=== PATIENT | male | born 1990 | race Caucasian/White ===

== ENCOUNTER 2020-06-20 15:36 | Outpatient (REF) | payer OTHER, SELFPAY ==
[2020-06-20 18:01] LABS: SARS COV2 PCR INHOUSE NEGATIVE (Negative)
== END 2020-06-20 15:37 | disposition home or self-care (01) ==
LOC: HO.LAB 15:36
PROVIDERS: Visit Provider Internal Medicine
DX: Z20.828 Contact with and (suspected) exposure to other viral communicable diseases (principal)
CPT/HCPCS: 87635

== ENCOUNTER 2020-06-23 13:56 | Outpatient (REF) | payer OTHER, SELFPAY ==
[2020-06-23 14:17] LABS: COVID-19 Test Negative (Negative)
== END 2020-06-23 13:57 | disposition home or self-care (01) ==
LOC: HO.LAB 13:56
PROVIDERS: Visit Provider Internal Medicine
DX: Z20.828 Contact with and (suspected) exposure to other viral communicable diseases (principal)
CPT/HCPCS: 87635

== ENCOUNTER 2021-05-12 12:32 | Outpatient (REF) | payer OTHER, SELFPAY ==
[2021-05-12 13:05] LABS: COVID-19 Test Negative (Negative); IDNOW Serial# 55D5AD1C
== END 2021-05-12 12:33 | disposition home or self-care (01) ==
LOC: HO.EMPCOV 12:32
PROVIDERS: Visit Provider Internal Medicine
DX: Z20.822 Contact with and (suspected) exposure to COVID-19 (principal)
CPT/HCPCS: 36415; 87635

== ENCOUNTER 2021-05-16 15:02 | Outpatient (REF) | payer OTHER, SELFPAY ==
[2021-05-16 15:57] LABS: Influenza A PCR NEGATIVE (Negative); Influenza B PCR NEGATIVE (Negative); Resp Syncy Virus RNA Qual PCR NEGATIVE (Negative); SARS COV2 PCR INHOUSE NEGATIVE (Negative)
== END 2021-05-16 15:03 | disposition home or self-care (01) ==
LOC: HO.EMPCOV 15:02
PROVIDERS: Visit Provider Internal Medicine
DX: Z20.822 Contact with and (suspected) exposure to COVID-19 (principal)
CPT/HCPCS: 0241U; 36415

== ENCOUNTER 2021-05-31 18:37 | Outpatient (REF) | payer OTHER, SELFPAY ==
[2021-05-31 19:09] LABS: Strep A Nucleic Acid Negative (Negative)
== END 2021-05-31 18:38 | disposition home or self-care (01) ==
LOC: HO.LAB 18:37
PROVIDERS: Visit Provider Internal Medicine
DX: J02.9 Acute pharyngitis, unspecified (principal); Z20.822 Contact with and (suspected) exposure to COVID-19
CPT/HCPCS: 36415; 87651; C9803

== ENCOUNTER 2021-06-02 15:20 | Emergency (ER) | payer OTHER, SELFPAY ==
--- NOTE | ~2021-06-02 | XR_ITS ---
EXAMINATION: XR CHEST CLINICAL INFORMATION: Cough and fever COMPARISON: None TECHNIQUE: 2 views of the chest were obtained. FINDINGS: No significant abnormality is noted involving the heart, lungs, mediastinum, bony thorax or soft tissues. XR/XR chest 2V IMPRESSION: Unremarkable examination.
[2021-06-02 15:48] VITALS: BP 135/78; PULSE 95; RESP 16; TEMP 37.9; O2SAT 96; BMI 29.7
--- NOTE | 2021-06-02 16:17 | ED_ITS ---
HPI - General Adult General Chief complaint: General Medical Stated complaint: covid symptoms Time Seen by Provider: 06/02/21 15:38 Source: patient Mode of arrival: ambulatory Limitations: no limitations History of Present Illness HPI narrative: Patient presents to the ED for fever, body aches, sore throat, and headache intermittently for the past 3 weeks. Patient states no chest pain or shortness of breath. Patient denies any rash, abdominal pain, diarrhea, hematuria, dysuria, flank pain, or any complaints, Related Data Previous Rx's Medication Instructions Recorded oxycodone 5 mg tablet 5 mg PO Q8H PRN 3 Days #10 tab 12/22/20 amoxicillin 875 mg-potassium 1 tab PO Q12H 10 Days #20 tab 06/02/21 clavulanate 125 mg tablet (Augmentin) doxycycline hyclate 100 mg capsule 100 mg PO BID 7 Days #14 cap 06/02/21 naproxen 500 mg tablet 500 mg PO BID PRN #20 tab 06/02/21 Allergies Allergy/AdvReac Type Severity Reaction Status Date / Time No Known Allergies Allergy Unverified 05/17/20 17:05 Review of Systems Review of Systems: Yes all other systems are reviewed and are negative Constitutional: Constitutional: Reports as per HPI, Reports no additional constitutional complaints, Reports body ache(s), Reports fever(s) and Reports headache(s) Eyes: Eyes: Reports as per HPI and Reports no additional eye complaints ENT: Reports system reviewed and no additional complaints, except as documented, Reports as per HPI, Reports headache(s) and Reports sore throat Cardiovascular: Cardiovascular: Reports as per HPI and Reports no additional cardiovascular complaints Respiratory: Respiratory: Reports as per HPI and Reports no additional respiratory complaints Gastrointestinal: Gastrointestinal: Reports as per HPI and Reports no additional gastrointestinal complaints Musculoskeletal: Musculoskeletal: Reports no additional musculoskeletal complaints and Reports as per HPI Neurologic: Reports system reviewed and no additional complaints, except as documented, Reports as per HPI and Reports headache(s) Psychiatric: Psychiatric: Reports no additional psychiatric complaints and Reports as per HPI PMF Social History Social History Alcohol intake: current Alcohol intake frequency: holidays/special occasions only Patient Tobacco Use Status: Current everyday Tobacco user Smoked in Last 30 Days: Yes Use of substances other than those prescribed or required for medical reasons: No Advance Directives: No Advance Directives Information Provided: No Physical Exam Vital Signs: Vital Signs: Last Vital Signs Temp 100.7 F H 06/02/21 17:49 Pulse 86 06/02/21 17:49 Resp 20 06/02/21 17:49 BP 152/75 H 06/02/21 17:49 Pulse Ox 98 06/02/21 17:49 Body Mass Index 29.7 Const: General: cooperative, healthy appearing, comfortable, no acute distress, well developed, alert, awake and Physically active Orientation/consciousness: patient oriented x3 HENMT: Head: Yes normal to inspection, Yes No palpable skull fracture present, Yes normocephalic and Yes atraumatic Ears: hearing grossly normal bilaterally, external ears normal, TM's normal bilaterally, EAC's normal, mastoids normal and no periauricular adenopathy Throat: Yes posterior oropharynx normal, Yes tonsils normal and Yes uvula midline Eyes: General: appearance normal, both eyes and all related structures Neck: Neck: Yes normal visual inspection, Yes full ROM, Yes no lymphadenopathy, Yes no meningeal signs, Yes trachea midline, Yes supple and No tender Chest: Chest palpation & inspection: normal inspection of the chest and normal palpation of entire chest wall Resp: Effort & Inspection: normal respiratory effort and able to speak in complete sentences Auscultation: clear to auscultation bilaterally Cardio: Jugular venous distension: no JVD Heart sounds: S1 normal heart sound present and S2 normal heart sound present GI: Inspection: Yes normal to inspection and No abdominal wall ecchymosis Palpation (GI): Soft to palpation, not firm, nontender, no guarding and not rigid : General: No CVA tenderness and Yes no CVA tenderness Back/Spine/Pelvis: Back: no CVA tenderness, No CVA tenderness and No back tenderness Skin: General skin exam: no rashes or lesions noted and elasticity normal Neuro: General: patient oriented x3, gait normal, no meningeal signs and CN's II-XI intact bilaterally Cranial nerves: Yes CN's II-XII intact bilaterally Extrem: General: Yes normal to inspection and Yes full ROM Psych: Appearance: grossly normal, well kempt and not disheveled Course Course Course Narrative: Patient is swabbed for COVID, strep, mono, and chest x-ray. Reevaluation(s) Reevaluation #1: COVID test, strep test, mono, and chest x-ray came back normal. Rest a respiratory panel still pending. Patient was ask has he been into the kitchen, seen a rash, being bit by tick and he states he is unaware. Will send Lyme test before discharge. Patient will be treated with doxycycline empirically. Tonsils are very red and strep test negative was still given the antibiotics. Patient informed to follow-up primary care provider Time: 19:07 Medical Decision Making MDM Narrative Medical decision making narrative: Pharyngitis. Lab Data Labs: Lab Results 06/02/21 06/02/21 06/02/21 Range/Units 16:30 16:35 16:35 Coronavirus (PCR) NEGATIVE (Negative) Monoscreen Negative (Negative) Influenza Type A (PCR) NEGATIVE (Negative) Influenza Type B (PCR) NEGATIVE (Negative) RSV RNA Qual (PCR) NEGATIVE (Negative) S. pyogenes GrpA JESSY Negative (Negative) Discharge Plan Discharge Clinical Impression: Pharyngitis Patient Disposition: Home, Self-Care Instructions: Pharyngitis (ED) Additional Instructions: Your COVID test, influenza, RSV, monospot and rapid strep test came back negative. Chest x-ray came back negative for pneumonia. Your Lyme test is pending you will be discharged with doxycycline as a precaution for possible Lyme infection. Although a strep test came back negative will be treated with Augmentin. Return to the ED for worsening symptoms, chest pain, abdominal pain, dysuria, hemautira, flank pain, inabitilty to tolerate solid food/liquids shortness of breath, intractable fever, weakness, chills, or any other concerning symptoms. Please follow-up with PCP Prescriptions: New doxycycline hyclate 100 mg capsule 100 mg PO BID 7 Days Qty: 14 RF: 0 amoxicillin-pot clavulanate [Augmentin] 875-125 mg tablet 1 tab PO Q12H 10 Days Qty: 20 RF: 0 naproxen 500 mg tablet 500 mg PO BID PRN (Reason: pain) Qty: 20 RF: 0 No Action oxycodone 5 mg tablet 5 mg PO Q8H PRN (Reason: pain) 3 Days Qty: 10 RF: 0 Stand Alone Forms: Work/School Release Interventions: ED Discharge Assessment Last Done: 06/02/21 19:32 Discharge Date/Time: 06/02/21 19:34 Print Language: Mongolian
[2021-06-02 16:53] LABS: IDNOW Serial# 9DD0AD1C; Strep A Nucleic Acid Negative (Negative)
[2021-06-02 17:21] LABS: Adenovirus PCR Not Detected (Not Detect.); Bordetella parapertussis PCR Not Detected (Not Detect.); Bordetella pertussis PCR Not Detected (Not Detect.); Chlamydia pneumoniae PCR Not Detected (Not Detect.); Coronavirus 229E PCR Not Detected (Not Detect.); Coronavirus HKU1 PCR Not Detected (Not Detect.); Coronavirus NL63 PCR Not Detected (Not Detect.); Coronavirus OC43 PCR Not Detected (Not Detect.); Human metapneumovirus PCR Not Detected (Not Detect.); Influenza A PCR Not Detected (Not Detect.); Influenza B PCR Not Detected (Not Detect.); Mycoplasma pneumoniae PCR Not Detected (Not Detect.); Parainfluenza 1 PCR Not Detected (Not Detect.); Parainfluenza 2 PCR Not Detected (Not Detect.); Parainfluenza 3 PCR Not Detected (Not Detect.); Parainfluenza 4 PCR Not Detected (Not Detect.); RSV PCR Not Detected (Not Detect.); Rhino/Enterovirus PCR Not Detected (Not Detect.); SARS-CoV-2 PCR Not Detected (Not Detect.)
[2021-06-02 17:26] LABS: Influenza A PCR NEGATIVE (Negative); Influenza B PCR NEGATIVE (Negative); Resp Syncy Virus RNA Qual PCR NEGATIVE (Negative); SARS COV2 PCR INHOUSE NEGATIVE (Negative)
[2021-06-02 17:32] LABS: Monotest Negative (Negative)
[2021-06-02 17:49] VITALS: BP 152/75; PULSE 86; RESP 20; TEMP 38.2; O2SAT 98
[2021-06-02] MEDS: Acetaminophen 325 MG TABLET 650 MG PO (18:47)
[2021-06-04 16:56] LABS: Lyme Abs Screen <0.90 index
== END 2021-06-02 19:34 | disposition home or self-care (01) ==
PROVIDERS: Physician Assistant; Emergency Provider Emergency Medicine Emergency Medical Services
DX: J02.9 Acute pharyngitis, unspecified (principal); F17.200 Nicotine dependence, unspecified, uncomplicated; Z20.822 Contact with and (suspected) exposure to COVID-19; Z79.899 Other long term (current) drug therapy; Z71.6 Tobacco abuse counseling
CPT/HCPCS: 0241U; 36415; 71046; 86308; 86617; 86618; 87633; 87651; 99283; 99284

== ENCOUNTER 2021-07-03 14:51 | Outpatient (REF) | payer OTHER, SELFPAY ==
[2021-07-03 15:13] LABS: COVID-19 Test Negative (Negative)
== END 2021-07-03 14:52 | disposition home or self-care (01) ==
LOC: HO.LAB 14:51
PROVIDERS: Visit Provider Internal Medicine
DX: Z20.822 Contact with and (suspected) exposure to COVID-19 (principal)
CPT/HCPCS: 36415; 87635; C9803

== ENCOUNTER 2021-07-26 17:38 | Outpatient (REF) | payer OTHER, SELFPAY ==
[2021-07-26 18:09] LABS: COVID-19 Test Negative (Negative)
== END 2021-07-26 17:39 | disposition home or self-care (01) ==
LOC: HO.LAB 17:38
PROVIDERS: Visit Provider Internal Medicine
DX: Z20.822 Contact with and (suspected) exposure to COVID-19 (principal)
CPT/HCPCS: 36415; 87635

== ENCOUNTER 2021-08-07 22:27 | Emergency (ER) | payer OTHER, SELFPAY ==
[2021-08-07 22:33] VITALS: BP 128/72; PULSE 84; RESP 16; TEMP 37; O2SAT 97; BMI 32.2
[2021-08-07] MEDS: Lidocaine HCl 2 % MPF 5 ML VIAL SUBCUT (22:57)
--- NOTE | 2021-08-07 23:00 | ED.SKABFB ---
HPI - Skin/Abscess/Foreign Bdy General Chief complaint: Skin/Abscess/Foreign Body Stated complaint: abscess Time Seen by Provider: 08/07/21 22:29 Source: patient Mode of arrival: ambulatory Limitations: no limitations History of Present Illness HPI narrative: 31-year-old male here with complaints of bump to the left lower abdomen for several days. There is some tenderness to the site, redness and warmth. No fevers or chills. Related Data Previous Rx's Medication Instructions Recorded oxycodone 5 mg tablet 5 mg PO Q8H PRN 3 Days #10 tab 12/22/20 amoxicillin 875 mg-potassium 1 tab PO Q12H 10 Days #20 tab 06/02/21 clavulanate 125 mg tablet (Augmentin) doxycycline hyclate 100 mg capsule 100 mg PO BID 7 Days #14 cap 06/02/21 naproxen 500 mg tablet 500 mg PO BID PRN #20 tab 06/02/21 doxycycline monohydrate 100 mg 100 mg PO BID #14 tab 08/07/21 tablet ibuprofen 600 mg tablet 600 mg PO Q8H PRN #20 tab 08/07/21 Allergies Allergy/AdvReac Type Severity Reaction Status Date / Time No Known Allergies Allergy Unverified 05/17/20 17:05 Review of Systems Review of Systems: Yes all other systems are reviewed and are negative Constitutional: Constitutional: Reports no additional constitutional complaints, Denies body ache(s), Denies chills, Denies fever(s), Denies headache(s) and Denies weakness Eyes: Eyes: Reports no additional eye complaints and Denies change in vision ENT: Reports system reviewed and no additional complaints, except as documented, Denies dizziness, Denies headache(s), Denies nasal congestion, Denies nasal discharge and Denies neck pain Cardiovascular: Cardiovascular: Reports no additional cardiovascular complaints, Denies chest pain, Denies leg edema and Denies dyspnea Respiratory: Respiratory: Reports no additional respiratory complaints, Denies cough and Denies dyspnea Gastrointestinal: Gastrointestinal: Reports no additional gastrointestinal complaints, Denies abdominal pain, Denies diarrhea, Denies nausea and Denies vomiting Genitourinary: Genitourinary: Denies urinary incontinence Musculoskeletal: Musculoskeletal: Reports no additional musculoskeletal complaints, Denies back pain, Denies arthralgias, Denies joint swelling, Denies neck pain, Denies numbness and Denies tingling Integumentary/Breasts: Skin/Breast: Reports system reviewed and no additional complaints, except as docu, Reports swelling, Reports erythema and Denies rash Neurologic: Reports system reviewed and no additional complaints, except as documented, Denies dizziness, Denies headache(s), Denies numbness, Denies tingling and Denies weakness PMF Past Medical History Attestation statement: The following information was validated with the patient. Source: old records reviewed and nursing notes reviewed Social History Social History Alcohol intake: current Alcohol intake frequency: holidays/special occasions only Patient Tobacco Use Status: Current everyday Tobacco user Advance Directives: No Advance Directives Information Provided: No Physical Exam Vital Signs: Vital Signs: Last Vital Signs Temp 98.6 F 08/07/21 22:33 Pulse 84 08/07/21 22:33 Resp 16 08/07/21 22:33 BP 128/72 08/07/21 22:33 Pulse Ox 97 08/07/21 22:33 BMI result Body Mass Index 32.2 Const: General: cooperative, healthy appearing, comfortable and no acute distress Orientation/consciousness: patient oriented x3 Limitations: no limitations HENMT: Head: Yes normal to inspection Ears: hearing grossly normal bilaterally General nose exam: Normal external nose present Face and sinus: Yes normal facial exam Mouth: Normal oral and palatal mucosa present Throat: Yes posterior oropharynx normal Eyes: General: appearance normal, both eyes and all related structures Neck: Neck: Yes normal visual inspection Chest: Chest palpation & inspection: normal inspection of the chest Resp: Effort & Inspection: normal respiratory effort Cardio: Peripheral pulses: Peripheral pulses 2+ throughout GI: Inspection: Yes normal to inspection Palpation (GI): nontender Abdomen image: 1. Abscess medium size with fluctuance, pointing, tenderness. There is no surrounding erythema or warmth. The abdomen is soft and nontender Back/Spine/Pelvis: Thoracic/Lumbar Spine: thoracic and lumbar spine normal to inspection Skin: General skin exam: no rashes or lesions noted Neuro: General: patient oriented x3 and moves all extremities Extrem: General: Yes normal to inspection Course Course Course Narrative: abscess the left lower quadrant. See procedure note. No evidence of abdominal wall cellulitis. No fevers or chills or systemic signs of infection. Will place patient on course of antibiotics. Reviewed worrisome signs and symptoms of when to return to the emergency department. Comfortable discharge home. Procedures Abscess I/D Site: abdomen Side (if applicable): left Local Anesthetic: lidocaine 2% Amount of anesthesia used (mL): 3 Technique: incised with blade Sent for culture/gram staining?: No Irrigation: No Packing used?: iodoform Discharge Plan Discharge Clinical Impression: Abscess of skin or subcutaneous tissue Patient Disposition: Home, Self-Care Instructions: Abscess (ED) Additional Instructions: packing removal in 2 days Prescriptions: New doxycycline monohydrate 100 mg tablet 100 mg PO BID Qty: 14 RF: 0 ibuprofen 600 mg tablet 600 mg PO Q8H PRN (Reason: pain) Qty: 20 RF: 0 No Action oxycodone 5 mg tablet 5 mg PO Q8H PRN (Reason: pain) 3 Days Qty: 10 RF: 0 doxycycline hyclate 100 mg capsule 100 mg PO BID 7 Days Qty: 14 RF: 0 amoxicillin-pot clavulanate [Augmentin] 875-125 mg tablet 1 tab PO Q12H 10 Days Qty: 20 RF: 0 naproxen 500 mg tablet 500 mg PO BID PRN (Reason: pain) Qty: 20 RF: 0 Referrals: Physician,None [Primary Care Provider] - 2 days
== END 2021-08-07 23:04 | disposition home or self-care (01) ==
PROVIDERS: Emergency Provider Internal Medicine
DX: L02.211 Cutaneous abscess of abdominal wall (principal)
CPT/HCPCS: 10060; 99283; 99284

== ENCOUNTER 2021-08-29 14:13 | Outpatient (REF) | payer OTHER, SELFPAY ==
[2021-08-29 14:55] LABS: COVID-19 Test Positive (Negative)
== END 2021-08-29 14:14 | disposition home or self-care (01) ==
LOC: HO.LAB 14:13
PROVIDERS: Visit Provider Internal Medicine
DX: Z20.822 Contact with and (suspected) exposure to COVID-19 (principal)
CPT/HCPCS: 36415; 87635

== ENCOUNTER 2022-04-06 21:12 | Emergency (ER) | payer OTHER, SELFPAY ==
[2022-04-06 21:17] VITALS: BP 126/82; PULSE 90; RESP 18; TEMP 36.8; O2SAT 96; BMI 33.4
== END 2022-04-07 01:02 | disposition left against medical advice (07) ==
LOC: HO.ED 04-07 00:36
PROVIDERS: Emergency Provider Emergency Medicine
DX: L02.211 Cutaneous abscess of abdominal wall (principal); F17.200 Nicotine dependence, unspecified, uncomplicated
CPT/HCPCS: 99281

== ENCOUNTER 2024-08-05 22:57 | Emergency (ER) | payer OTHER, SELFPAY ==
--- NOTE | ~2024-08-05 | XR_ITS ---
EXAMINATION: XR ANKLE, LEFT CLINICAL INFORMATION: injury pain COMPARISON: None. TECHNIQUE: AP, lateral, and mortise views of the left ankle. FINDINGS: The bone mineralization is normal. There are old healed fractures of the distal tibia and fibula. The ankle joint space is maintained. There is no acute fracture. There appears to be mild soft tissue swelling about the ankle. XR/XR ankle LT min 3V IMPRESSION: 1. No acute fracture. 2. Old healed fractures of the distal tibia and fibula. 3. Mild soft tissue swelling. Electronically signed by: Jake Vides MD 08/06/2024 02:08 AM [facility]
[2024-08-05 23:04] VITALS: BP 128/80; PULSE 93; RESP 16; TEMP 37.1; O2SAT 97; BMI 35.6
--- NOTE | 2024-08-06 00:01 | ED.GENADULT ---
HPI - General Adult General Chief complaint: Extremity Injury, Lower Stated complaint: L ankle injury Time Seen by Provider: 08/05/24 23:42 Source: patient, RN notes reviewed and old records reviewed Mode of arrival: ambulatory Limitations: no limitations History of Present Illness ED Provider: Teagan EDGAR narrative: 34-year-old male presents for evaluation of left ankle pain. Patient reports he was chasing a dog a few hours ago. He reports that his left ankle rolled She heard a pop and has had pain ever since. He has been able to ambulate Denies any other injuries Related Data Previous Rx's ?Medication ?Instructions ?Recorded oxycodone 5 mg tablet 5 mg PO Q8H PRN pain 3 days #10 12/22/20 tabs amoxicillin 875 mg-potassium 1 tab PO Q12H 10 days #20 tabs 06/02/21 clavulanate 125 mg tablet (Augmentin) doxycycline hyclate 100 mg capsule 100 mg PO BID 7 days #14 caps 06/02/21 naproxen 500 mg tablet 500 mg PO BID PRN pain #20 tabs 06/02/21 doxycycline monohydrate 100 mg 100 mg PO BID #14 tabs 08/07/21 tablet ibuprofen 600 mg tablet 600 mg PO Q8H PRN pain #20 tabs 08/07/21 Allergies Allergy/AdvReac Type Severity Reaction Status Date / Time No Known Allergies Allergy Verified 08/05/24 23:07 Review of Systems Musculoskeletal: Musculoskeletal: Reports arthralgias, Reports joint swelling and Reports limited range of motion PMFSH Social History Social History Alcohol intake: current Alcohol intake frequency: a few times a month Patient Tobacco Use Status: Current everyday Tobacco user Smoked in Last 30 Days: No Use of substances other than those prescribed or required for medical reasons: No Advance Directives: No Advance Directives Information Provided: Yes Do you have a plan to hurt others: No Plan Physical Exam ED Vital Signs: Vital Signs - 24 hr 08/05/24 23:04 Temperature 98.8 F Pulse Rate 93 Respiratory Rate 16 Blood Pressure 128/80 Pulse Oximetry 97 Oxygen Delivery Method Room Air BMI result Body Mass Index 35.6 Const General: healthy appearing, comfortable, no acute distress, alert and awake Nutritional Appearance: well nourished Orientation/consciousness: patient oriented x3 HENMT Head: Yes normocephalic and Yes atraumatic Eyes Eyelids: Yes eyelids normal Conjunctivae: conjunctivae normal Sclerae: sclerae normal Corneas: corneas normal Pupils: Equal, round and reactive pupils present EOM: EOMs intact bilaterally Neck Neck: Yes full ROM Resp Effort & Inspection: normal respiratory effort, able to speak in complete sentences and not labored Cardio Rate: regular rate Rhythm: regular rhythm Skin General skin exam: elasticity normal Neuro General: patient oriented x3 Cranial nerves: Yes Equal, round and reactive pupils present and Yes Bilaterally intact EOM present Cognition (Neuro): normal cognition Extrem Other: To the medial aspect of the left lower extremity above the ankle. The patient is tender posterior to the left lateral malleolus. There is no actual tenderness to the left lateral malleolus itself. There is minimal edema. No open wounds, no calf tenderness. Distal sensation and capillary refill intact Medical Decision Making Medical Decision Making MDM Narrative: 34-year-old male presents for evaluation of left ankle injury after rolling it while running. X-ray was ordered to rule out fracture. Clinically he likely has an ankle sprain Differential Diagnosis Differential Diagnoses: The differential diagnosis associated with the presentation includes Ankle sprain Ankle fracture Contusion Dislocation Independent Interpretation I performed an independent interpretation of an: Plain X-Ray (Evidence of previous traumatic injury. No acute fracture of the left lateral malleolus) Discharge Plan Discharge Clinical Impression: Ankle sprain and strain Patient Disposition: Home, Self-Care Instructions: Ankle Sprain (ED) Prescriptions: No Action oxycodone 5 mg tablet 5 mg PO Q8H PRN (Reason: pain) 3 Days Qty: 10 0RF doxycycline hyclate 100 mg capsule 100 mg PO BID 7 Days Qty: 14 0RF amoxicillin-pot clavulanate [Augmentin] 875-125 mg tablet 1 tab PO Q12H 10 Days Qty: 20 0RF naproxen 500 mg tablet 500 mg PO BID PRN (Reason: pain) Qty: 20 0RF doxycycline monohydrate 100 mg tablet 100 mg PO BID Qty: 14 0RF ibuprofen 600 mg tablet 600 mg PO Q8H PRN (Reason: pain) Qty: 20 0RF Discharge Date/Time: 08/06/24 00:58 Print Language: Norwegian
--- NOTE | 2024-08-06 00:54 | PC.NURSE ---
Pt did not want to wait for xray results, declined air cast. LWCT, provider aware.
== END 2024-08-06 00:58 | disposition home or self-care (01) ==
PROVIDERS: Emergency Provider Internal Medicine
DX: S93.402A Sprain of unspecified ligament of left ankle, initial encounter (principal); S96.912A Strain of unspecified muscle and tendon at ankle and foot level, left foot, initial encounter; X50.1XXA Overexertion from prolonged static or awkward postures, initial encounter; Y93.02 Activity, running; Y92.9 Unspecified place or not applicable; Y99.9 Unspecified external cause status
CPT/HCPCS: 73610; 99283